=== PATIENT | male | born 1985 | race Caucasian/White ===

== ENCOUNTER 2021-06-06 08:53 | Day surgery (SDC) | payer OTHER ==
[2021-06-04 11:39] LABS: COVID AG,FIA SOURCE NASAL SWAB
[~2021-06-06] VITALS: Ht 152.4 cm; Wt 50.9 kg
[~2021-06-06 08:53] MED LIST: ASPI-1450 PO; SODIUM CHLORIDE 0.9% 1,000 ML IV ONE
[2021-06-06] MEDS ORDERED: PROPOFOL 1% 20 ML VIAL IVP ONE (08:54)
[2021-06-06] MEDS ORDERED: ALBUTEROL SULFATE 2.5 MG/0.5 ML NEB SOLUTION NEB ONE (11:45)
[2021-06-06] MEDS ORDERED: OXYGEN THERAPY IH SCH (20:00)
== END 2021-06-06 14:25 | disposition home or self-care (01) ==
LOC: SURGERY 08:53
PROVIDERS: ATTEND Specialist
DX: R13.10 Dysphagia, unspecified (principal); Z98.890 Other specified postprocedural states; Z95.4 Presence of other heart-valve replacement; Z88.8 Allergy status to other drugs, medicaments and biological substances; F41.9 Anxiety disorder, unspecified; Z79.899 Other long term (current) drug therapy
CPT/HCPCS: 43235; 71045; 87426; 94640; C9803; J2704